=== PATIENT | male | born 1950 | race Caucasian/White ===

== ENCOUNTER 2019-07-17 09:33 | Outpatient (CLI) | payer BC ==
--- NOTE | 2019-07-17 11:27 | CT ---
CT OF BRAIN PERFORMED WITHOUT CONTRAST ENHANCEMENT: Date: 07/17/2019 HISTORY: Patient is having follow-up of a subdural hematoma from surgery in April. The patient has an unste siria gait. FINDINGS: Postoperative changes with left-sided frontal bur holes are noted. There is no subdural collection on the left side. Over the right frontal convexity is a more lenticular shape acute blood collection measuring 2.0 cm. Over the right posterior frontoparietal convexity region is a second also somewhat lenticular shaped collection which is almost isodense to the surrounding breast tissue, but is felt to represent a seco nd large extra-axial somewhat lenticular shaped collections which are more suggestive of a hematoma w ith acute, subacute, and older elements. It measures as much as 3.0 cm in thickness. There is approxi mately 5-6 mm of midline shift to the left. There is effacement of the sulci on the right. IMPRESSION: Two large extra-axial somewhat lenticular shaped collections. One is more of an acute epidural/subdur al hematoma over the right frontal convexity and the second is more over the vertex of the skull in t he right posterior frontoparietal region. There is 5-6 mm of midline shift associated with this and g eneralized effacement of the sulci. These findings were telephoned to Dr. Morales and the patient is being taken to Dr. Morales's offic e for further assessment. POS: [facility]
== END 2019-07-17 09:34 | disposition home or self-care (01) ==
LOC: TBSIIMAG 09:33
PROVIDERS: ATTEND Neurological Surgery
DX: I62.00 Nontraumatic subdural hemorrhage, unspecified (principal)
CPT/HCPCS: 70450

== ENCOUNTER 2019-07-17 15:06 | Inpatient (IN) | payer BC, MEDICARE ==
[2019-07-17 19:48] VITALS: BMI 21.9
[2019-07-17] MEDS ORDERED: HYDROcodone/Acetaminophen 7.5/325 mg Tablet PO PRN ×2 (20:36)
[2019-07-17] MEDS ORDERED: Labetalol HCl 100 MG/20 ML VIAL SLOW IVP PRN (20:37)
[2019-07-17] MEDS ORDERED: Morphine 2 MG/ML SYRINGE SLOW IVP PRN (20:38)
[2019-07-17] MEDS ORDERED: Morphine 4 MG/ML VIAL SLOW IVP PRN (20:38)
[2019-07-17] MEDS ORDERED: Acetaminophen 650 MG Suppository PR PRN (20:40)
[2019-07-17] MEDS ORDERED: Mag-Al 1200 mg/1200 mg/30 ML UDCUP PO PRN (20:41)
[2019-07-17] MEDS ORDERED: diphenhydrAMINE 50 MG/ML VIAL IVP PRN (20:41)
[2019-07-17] MEDS ORDERED: diphenhydrAMINE 50 MG CAP PO PRN (20:41)
[2019-07-17] MEDS: Famotidine/PF 20 mg/2ml Vial SLOW IVP SCH (20:47)
[2019-07-17] MEDS: Sodium Chloride 0.9% 1,000 ML IV SCH (20:47)
[2019-07-17 20:53] LABS: #Basophils 0.1 thou/uL (0.0-0.2); #Eosinphils 0.1 thou/uL (0.0-0.7); #Lymphocytes 1.4 thou/uL (1.20-3.40); #Monocytes 0.5 thou/uL (0.11-0.59); #Neutrophils 3.3 thou/uL (1.40-6.50); %Basophils 1.4 % (0.0-1.0); %Eosinophils 2.3 % (0.0-10.0); %Lymphocytes 26.1 % (21.0-51.0); %Monocytes 9.5 % (0.0-10.0); %Neutrophils 60.7 % (42.0-75.0); Hemoglobin 13.7 g/dL (14.0-18.0); Mean Corpuscular HGB CONC 34.1 g/dL (32.0-36.0); Mean Corpuscular Volume 96.7 fL (78.0-98.0); Mean Platelet Volume 7.6 fL (7.4-10.4); Platelet Count 196 thou/uL (130-400); RBC Distribution Width 11.4 % (11.5-14.5); Red Blood Cell (RBC) Count 4.14 mill/uL (4.70-6.10); White Blood Cell (WBC) Count 5.5 thou/uL (4.8-10.8)
[2019-07-17 21:00] LABS: INR-International Normal Ratio 1.1; PTT 28.7 SEC (22.9-36.1); Prothrombin Time 14.3 SEC (12.0-14.7)
[2019-07-17 21:13] LABS: Anion Gap 13 mmol/L (10-20); BUN (Urea Nitrogen) 16 mg/dL (8.4-25.7); Calc. Creatinine Clearance 56 mL/min (70-130); Calcium 8.8 mg/dL (7.8-10.44); Carbon Dioxide 28 mmol/L (23-31); Chloride 102 mmol/L (98-107); Estimated GFR-MDRD 64; Glucose 192 mg/dL (80-115); Potassium 3.8 mmol/L (3.5-5.1); Sodium 139 mmol/L (136-145)
--- NOTE | 2019-07-18 00:14 | HP ---
HISTORY OF PRESENT ILLNESS: The patient is a 68-year-old male with a past medical history of hypertension, who is known to us for evaluation on 2018 for acute onset of gait instability with CT head at that time notable for a large left-sided vstak-[id number]-lcgqbfb subdural hematoma. He underwent left-sided bur holes with evacuation of the subdural hematoma on 04/29/2019. Following the surgery, he had significant improvement in all of his prior symptoms and was eventually transitioned from the ICU to the floor and eventually to home. He was seen by me in followup on 05/16/2019 with significant improvement and resolution of all his prior symptoms. The patient reports that he was doing well until approximately 1 week ago when he began feeling again slightly unsteady on his feet and leaning more to the left. He was seen in the office today following a repeat noncontrast CT head, which was notable for a progressive and large right-sided xwcal-gs-kzzvatp subdural hematoma. There is mass effect and midline shift. He denies taking any anticoagulants or any recent fall. PAST MEDICAL HISTORY: Hypertension. PAST SURGICAL HISTORY: Left-sided bur holes for evacuation of subdural hematoma on 04/29/2019. MEDICATIONS: He does not take any other medications at home. ALLERGIC: He is allergic to Bactrim and penicillin. SOCIAL HISTORY: He does not smoke, drink, or use any drugs. REVIEW OF SYSTEMS: Per HPI. PHYSICAL EXAMINATION: GCS 15 awake, alert nad, VSS NCAT OP clear with normal voice PERRLA, EOMI Cardiac RR Lungs- no evidence of dypnea FAROM all extremities, no focal weakness Mild gait unsteadiness appreciated. ASSESSMENT AND PLAN: We will go ahead and admit to the Med/Surg floor for close monitoring with plans for right-sided bur holes for subdural evacuation on morning. I will go ahead and repeat his labs and also check coags as well. We will get an MRI of the brain with and without contrast for further evaluation in the morning. I have discussed this plan with Dr. Morales who is in agreement. The patient will be made n.p.o. at midnight on 07/18/2019. Job ID: [id number] MTDD
--- NOTE | 2019-07-18 05:55 | PRG ---
DATE OF SERVICE: 07/18/2019 SUBJECTIVE: Mr. Yang is a gentleman, seen in our office yesterday for return of unsteady gait and found to have a large right-sided acute on chronic subdural hematoma with mass effect and midline shift. He was evacuated for left-sided subdural hematoma in April of 2019. Overnight, he has had no events and has remained comfortable. OBJECTIVE: GENERAL: On exam this morning, he is awake, alert, in no acute distress. EXTREMITIES: He has free active range of motion of all extremities. No focal motor weakness. Pupils are equal and reactive to light. PLAN: We will continue to monitor him closely with q.4 neuro checks. We will get an MRI of the brain with and without contrast for additional evaluation. Plans for surgery in the morning with right-sided jerilyn holes for evacuation of subdural hematoma. The patient should be n.p.o. at midnight. Job ID: [id number]
--- NOTE | 2019-07-18 08:49 | MRI ---
MRI of thebrain with and without contrast: 07/18/2019 COMPARISON:Head CT performed 07/17/2019 HISTORY:Subdural hematoma TECHNIQUE: Multiplanar multisequence MR imaging of thebrain with and without contrast Findings:The diffusion weighted imaging demonstrates no evidence for acute infarction. There is a lar ge lobulated complex extra-axial on the right measuring 14 cm in AP dimension, up to 5.6 cm in craniocaudal dimension, with posterior component measuring 3.6 cm in transverse dimension and anterio r component measuring 2.5 cm in transverse dimension. This exerts mass effect on the adjacent frontal lobe and parietal lobe with associated flattening. There is associated mass effect on the right lateral ventricle which is partially compressed. There i s associated right to left midline shift measuring 9-10 mm. There is adjacent dural thickening and enhancement throughout the majority of the right hemisphere. There is mild polypoid mucosal thickening involving the alveolar recess of the left maxillary sinus. Arterial flow voids at the axial level of the skull base appear grossly unremarkable on the T2-weighted imaging. The whole brain postcontrast imaging demonstrates no abnormal enhancement within the brain parenchyma. Of note, the components of the large extra-axial hematoma on the right are markedly complex with marylou ed internal heterogeneity and blood products of varying ages anteriorly and posteriorly. IMPRESSION: Complex lobulated large extra-axial hematoma (primarily subdural in location) on the righ t with anterior and posterior lobulated complex internal components causing significant associated mass effect with partial effacement of right lateral ventricle and right to left midline shift of jenni roximately 9-10 mm.
[2019-07-18] MEDS: Famotidine/PF 20 mg/2ml Vial SLOW IVP SCH ×2 (09:37→20:30)
[2019-07-18] MEDS: Sodium Chloride 0.9% 1,000 ML IV SCH (12:37)
[2019-07-18] MEDS: hydrALAZINE 20 MG/ML VIAL SLOW IVP PRN (12:53)
[2019-07-18] MEDS ORDERED: Magnevist 469MG/ML 20 ML VIAL ONE (12:59)
[2019-07-19] MEDS: Sodium Chloride 0.9% 1,000 ML IV SCH ×3 (00:55→21:56)
[2019-07-19] MEDS: hydrALAZINE 20 MG/ML VIAL SLOW IVP PRN ×3 (04:17→14:08)
[2019-07-19] MEDS: Acetaminophen 325 MG TAB PO PRN (04:24)
[2019-07-19] MEDS ORDERED: Clindamycin/D5W 900 mg/50 ml Premix Bag ONE (06:32)
[2019-07-19] MEDS ORDERED: Levofloxacin 500 mg/D5W 100 ml Premix Bag ONE (06:32)
[2019-07-19] MEDS ORDERED: Lidocaine 0.5%/Epinephrine 1:200,000 50 ml Vial ONE (06:35)
[2019-07-19] MEDS ORDERED: Fentanyl 100 MCG/2 ML VIAL ONE ×2 (06:36→09:01)
[2019-07-19] MEDS ORDERED: Clindamycin/D5W 900 MG in Premix Bag 1 BAG IVPB SCH (07:30)
[2019-07-19] MEDS ORDERED: niCARdipine 25 MG in Sodium Chloride 0.9% 250 ML 240 ML IVPB SCH (08:45)
[2019-07-19] MEDS ORDERED: Ondansetron HCl/PF 4 MG/2 ML Vial IVP PRN (08:47)
[2019-07-19] MEDS ORDERED: Labetalol HCl 100 MG/20 ML VIAL ONE (08:51)
[2019-07-19] MEDS ORDERED: Labetalol HCl 100 MG/20 ML VIAL SLOW IVP SCH (09:00)
--- NOTE | 2019-07-19 09:13 | OP ---
DATE OF PROCEDURE: 07/19/2019 PLATE FORMER: Kelly Perez PA-C PROCEDURE PERFORMED: Right jerilyn holes evacuation subdural hematoma. DESCRIPTION OF PROCEDURE: The patient was brought to the operating room and intubated. He was positioned supine and the right cranial region was prepped and draped for the purpose of jerilyn holes. Two bur holes were placed in the lateral canthal line frontal and parietally. The dura was coagulated and divided and we immediately encountered lou subdural hematoma. This seemed largely liquid and I did not identify significant solid clot. The subdural hematoma was completely evacuated. The brain did not seem to expand significantly. The subdural space was evacuated until clear. A drain was left in place and the wounds were then closed in anatomic layers. Job ID: [id number]
[2019-07-19] MEDS ORDERED: Rocuronium Bromide 10 MG/ML (10ML VIAL) ONE (10:31)
[2019-07-19] MEDS ORDERED: Ondansetron PF 4 MG/2 ML Vial ONE (10:31)
[2019-07-19] MEDS ORDERED: Lidocaine 1% PF 5 ML VIAL ONE ×2 (10:31)
[2019-07-19] MEDS ORDERED: Dexamethasone 20 MG/5 ML VIAL ONE (10:31)
[2019-07-19] MEDS ORDERED: Glycopyrrolate 0.2 MG/ML 5 ML SYRINGE ONE (10:31)
[2019-07-19] MEDS ORDERED: PHENYLEPHRINE-NS 100 MCG/ML 10 ML SYRINGE ONE (10:31)
[2019-07-19] MEDS ORDERED: PROPOFOL 200 MG/20 ML VIAL ONE (10:31)
[2019-07-19] MEDS: Famotidine/PF 20 mg/2ml Vial SLOW IVP SCH (10:37)
--- NOTE | 2019-07-19 10:37 | EKG ---
Test Reason : Blood Pressure : / mmHG Vent. Rate : 068 BPM Atrial Rate : 068 BPM P-R Int : 202 ms QRS Dur : 146 ms QT Int : 430 ms P-R-T Axes : 053 -52 035 degrees QTc Int : 457 ms Normal sinus rhythm Possible Left atrial enlargement Right bundle branch block Left anterior fascicular block Bifascicular block Septal infarct , age undetermined cannot be excluded Abnormal ECG Confirmed by RADHA LEONARD ([id number]) on 07/19/2019 10:37:19 AM Referred By: Confirmed By:RADHA LEONARD
[2019-07-19] MEDS: Clindamycin/D5W 900 MG in Premix Bag 1 BAG IVPB SCH ×2 (13:49→21:49)
--- NOTE | 2019-07-19 14:03 | PQF ---
DATE: 07-19-19 ATTN: SHANTA KIRAN Please exercise your independent, professional judgment in responding to the clarification form. Clinical indicators are provided on the bottom of this form for your review Please check appropriate box(s): [ ] Cerebral edema / Vasogenic edema [ ] Compression of brain [x ] Other diagnosis ____subdural hematoma [ ] Unable to determine In addition, please specify: Present on Admission (POA): [ ] Yes [ ] No [ ] Unable to determine For continuity of documentation, please document condition throughout progress notes and discharge summary. Thank You. CLINICAL INDICATORS - SIGNS / SYMPTOMS / LABS / RESULTS AND LOCATION IN EMR: H&P 07-17-19: HE WAS SEEN IN THE OFFICE TODAY FOLLOWING A REPEAT NONCONTRAST CT HEAD, WHICH WAS NOTABLE FOR A PROGRESSIVE AND LARGE R SIDED ACUTE ON CHRONIC SUBDURAL HEMATOMA. THERE IS MASS EFFECT AND MIDLINE SHIFT. MRI 07-18-19: ASSOCIATED MASS EFFECT WITH PARTIAL EFFACEMENT OF RIGHT LATERAL VENTRICLE AND RIGHT TO LEFT MIDLINE SHIFT OF APPROX. 9-10 MM. RISK FACTORS / RESULTS AND LOCATION IN EMR: H&P 07-18-19: MEDICAL HX OF HTN, WHO IS KNOWN TO US FOR EVAL. ON 04-28 FOR ACUTE ONSET OF GAIT INSTABILITY WITH CT HEAD AT THAT TIME NOTABLE FOR A LARGE L SIDED ACUTE ON CHRONIC SUBDURAL HEMATOMA. HE UNDERWENT L SIDED BUR HOLES WITH EVACUATION OF THE SUBDURAL HEMATOMA ON 04-29-19. BEGAN FEELING AGAIN SLIGHTLY UNSTEADY ON HIS FEET AND LEANING MORE TO THE LEFT. TREATMENTS / RESULTS AND LOCATION IN EMR: BRAIN MRI 07-18-19 PROCEDURE: 07-19-19: [employer] (This form is maintained as a part of the permanent medical record) 2014 [employer]. All Rights Reserved [facility]
[2019-07-19] MEDS: Ondansetron PF 4 MG/2 ML Vial SLOW IVP PRN (14:26)
[2019-07-19] MEDS ORDERED: chlorproMAZINE HCl 25 MG TAB PO PRN (19:56)
[2019-07-19] MEDS ORDERED: Diazepam 5 MG TAB PO PRN (20:20)
[2019-07-19] MEDS ORDERED: Diazepam 5 MG TAB PO SCH (20:30)
[2019-07-19] MEDS: Atenolol 25 MG TAB PO SCH (20:37)
[2019-07-19] MEDS: Tamsulosin HCl 0.4 MG CAP PO SCH ×2 (20:37→21:02)
--- NOTE | 2019-07-19 21:09 | CON ---
DATE OF CONSULTATION: 07/19/19 Provider requesting the consult -- Kelly Perez PA-C. REASON FOR CONSULTATION: Evaluation for possible alcohol withdrawal and management of medical conditions. HISTORY OF PRESENT ILLNESS: The patient is a 68-year-old male with a past medical history of hypertension and benign prostatic hyperplasia, who was admitted electively after the patient was seen in the office by Kelly and found to have an unsteady gait. The patient underwent a CT scan of the head, which revealed a subdural hematoma. The patient was admitted for surgical intervention. Apparently, the patient had gait instability in March 2019, at which time, CT scan of the head revealed a large left-sided acute on chronic subdural hematoma. He underwent left-sided jerilyn holes with evacuation of the subdural hematoma on April 29, 2019. He had significant improvement in his symptoms. Eventually, the patient was seen in followup by Dr. Andriy Morales for unsteady gait. Noncontrast CT scan of the head was obtained which revealed a large right-sided acute on chronic subdural hematoma. He was admitted to the hospital. The patient underwent MRI of the brain, which revealed the large right-sided subdural hematoma. Hence, the patient underwent operative intervention on 07/19/2019 with jerilyn holes and evacuation of the subdural hematoma. The patient is currently admitted to the CCU. Internal Medicine consult was requested as the patient has a history of alcohol use and there is concern for possible alcohol withdrawals. Internal Medicine evaluation has also been requested for management of his chronic medical conditions. Currently, the patient stated that he has some discomfort in his head and rates the pain as 1/10 in intensity without any radiation. He denies any changes in his vision. He reports nausea and dry heaves. He denies any abdominal pain, diarrhea, or constipation. He does report some abdominal discomfort in the lower abdomen and relates it to trouble urinating. He stated that he has urinary urgency, but he is not able to make any urine. He stated that he has a history of BPH and is usually on Flomax. He also states that he feels as if the bladder is full. The patient also complains of hiccups that happen once every 3 to 4 months and last from 2 to 5 days. He has never been evaluated for the same. However, he stated that the hiccups usually get better after he takes some Tums. The patient denies any chest pain, shortness of breath, palpitations, cough, or wheezing. He denies any fever or chills. He denies any swelling in his legs, rash, or bruising. PAST MEDICAL HISTORY: Essential hypertension. Benign prostatic hyperplasia. PAST SURGICAL HISTORY: Left-sided jerilyn holes and evacuation of subdural hematoma in April 2019. Hernia repair surgery. Broken leg surgery. FAMILY HISTORY: Reviewed. Not pertinent. SOCIAL HISTORY: Patient lives with his . He does not use any assistive devices for ambulation. He denies smoking or using any illicit drugs. Patient reports consuming two glasses of wine every night at bedtime over the past 20 years. His last drink was on Tuesday. He denies any history of alcohol withdrawal seizures in the past or delirium tremens in the past. He stated that he can go up to a month without consuming alcohol and states that he did this after his surgery in April 2019. Currently, he denies any withdrawal symptoms. He does report mild anxiety from not getting his alcohol as alcohol helps him calm down. He denies any insomnia. ALLERGIES: PENICILLINS AND SULFA. CURRENT HOME MEDICATIONS: Reviewed and reconciled. PHYSICAL EXAMINATION: VITAL SIGNS: Temperature is 98.2 degrees Fahrenheit, heart rate 167 per minute, blood pressure 140/89 mmHg, respiratory rate 11 per minute, and oxygen saturation 96% on room air. CONSTITUTIONAL: Patient is lying in the bed. Appears to be in no acute distress. HEAD: Drain in place on the right side of the head, draining bloody fluid. Minimal tenderness to palpation. EYES: Pupils equal, round, and react to light and accommodation. No scleral icterus or conjunctival pallor present. ENT: Dry mucous membranes. No oropharyngeal erythema appreciated. CARDIOVASCULAR: First and second heart sounds present. Regular rate and rhythm. No murmurs, rubs, or gallops present. No pedal edema appreciated. PULMONARY: Clear to auscultation bilaterally. Not using accessory muscle respirations. No chest wall tenderness to palpation present. GASTROINTESTINAL: Soft. Minimal tenderness to palpation in the hypogastric region without any rebound tenderness, guarding, or rigidity. Bowel sounds present. No organomegaly appreciated. MUSCULOSKELETAL: Power is 5/5 all over. No acute joint deformities appreciated. CENTRAL NERVOUS SYSTEM: Cranial nerves 2 through 12 grossly intact. No sensory deficits appreciated. PSYCHIATRIC: Patient is awake, alert, and oriented to time, place, and person. DERMATOLOGIC: No decubitus ulcers appreciated. SKIN: Warm and dry to touch. LYMPHATIC: No cervical lymphadenopathy appreciated. No inguinal lymphadenopathy appreciated. LABORATORY DATA: Reviewed. Hemoglobin of 13.7 on 07/17/2019. Glucose was 192 on 07/17/2019 and has been within the normal range since then. IMPRESSION: 1. Right acute on chronic subdural hematoma, status post evacuation with jerilyn holes. 2. Alcohol use-not in withdrawal. 3. Hiccups. 4. Benign prostatic hyperplasia-symptomatic. Concern for urinary retention. 5. Essential hypertension. RECOMMENDATIONS: 1. Management of his subdural hematoma per the primary team. 2. Patient will be placed on Thorazine p.o. p.r.n. hiccups. IV protonix for stress ulcer prophylaxis. 3. For his BPH, patient will be resumed on Flomax. Will also obtain a bladder scan and if the patient has urinary retention, the patient will undergo in and out straight catheterization. If the patient has urinary retention, he will continue to undergo bladder scanning every 6 to 8 hours for monitoring. 4. For his essential hypertension, patient is on p.r.n. medications. Management as per primary team. His blood pressure is adequately controlled. 5. GI prophylaxis-IV protonix. CODE STATUS - FULL CODE Thank you very much for involving the Internal Medicine team in the care of your patient. We will continue to monitor the patient and assist in the management. Job ID: [id number] MTDD
[2019-07-19] MEDS ORDERED: Pantoprazole 40 MG VIAL IVP SCH (21:30)
[2019-07-20 03:59] LABS: #Eosinphils 0.1 thou/uL (0.0-0.7); #Lymphocytes 1.1 thou/uL (1.20-3.40); #Monocytes 1.3 thou/uL (0.11-0.59); #Neutrophils 7.8 thou/uL (1.40-6.50); %Basophils 0.4 % (0.0-1.0); %Eosinophils 0.5 % (0.0-10.0); %Lymphocytes 10.8 % (21.0-51.0); %Monocytes 12.7 % (0.0-10.0); %Neutrophils 75.6 % (42.0-75.0); Hemoglobin 13.4 g/dL (14.0-18.0); Mean Corpuscular HGB CONC 34.8 g/dL (32.0-36.0); Mean Corpuscular Hemoglobin 33.7 pg (27.0-31.0); Mean Corpuscular Volume 97.1 fL (78.0-98.0); Mean Platelet Volume 7.6 fL (7.4-10.4); Platelet Count 198 thou/uL (130-400); RBC Distribution Width 11.5 % (11.5-14.5); Red Blood Cell (RBC) Count 3.98 mill/uL (4.70-6.10); White Blood Cell (WBC) Count 10.3 thou/uL (4.8-10.8)
[2019-07-20] MEDS ORDERED: Diazepam 5 MG TAB PO PRN (04:00)
[2019-07-20 04:25] LABS: ALT (SGPT) 9 U/L (8-55); AST (SGOT) 15 U/L (5-34); Albumin 3.7 g/dL (3.4-4.8); Alkaline Phosphatase 71 U/L (40-110); Anion Gap 9 mmol/L (10-20); BUN (Urea Nitrogen) 15 mg/dL (8.4-25.7); Calc. Creatinine Clearance 63 mL/min (70-130); Calcium 8.7 mg/dL (7.8-10.44); Carbon Dioxide 25 mmol/L (23-31); Chloride 105 mmol/L (98-107); Estimated GFR-MDRD 73; Globulin 2.2 g/dL (2.4-3.5); Glucose 103 mg/dL (80-115); Phosphorus 3.3 mg/dL (2.3-4.7); Potassium 4.1 mmol/L (3.5-5.1); Protein, Total 5.9 g/dL (5.8-8.1); Sodium 135 mmol/L (136-145)
[2019-07-20] MEDS: Clindamycin/D5W 900 MG in Premix Bag 1 BAG IVPB SCH ×3 (05:22→21:02)
[2019-07-20] MEDS ORDERED: Tamsulosin HCl 0.4 MG CAP PO SCH (07:30)
--- NOTE | 2019-07-20 07:37 | CT ---
PRELIMINARY REPORT/[facility]/EMERGENCY AFTER HOURS PROCEDURE PROCEDURE: CT Head without Contrast . HISTORY: Status post intracranial hemorrhage drainage. TECHNIQUE: Axial images were performed without the administration of IV contrast with or without mult iplanar reformations . COMPARISON: 07/17/2019. FINDINGS: Interval jerilyn hole placement on the RIGHT with drainage of the patient's subdural hemorrhage with maribeth ins remaining present in the collection. There remains moderate amount of hemorrhage posterior aspect of the RIGHT convexity measuring up to 1.9 cm in diameter with moderate mass effect on the adj acent cerebrum. Near-complete drainage of the collection anteriorly over the convexity on the RIGHT. Small amount of pneumocephalus in the subdural region related to drainage. Improved midline shift with no significant shift on current study. Normal size ventricles. No other acute change identified. IMPRESSION: Interval jerilyn hole placement and drainage of the patient's subdural collection on the RIGHT with mode rate amount of hemorrhage remaining present posteriorly near the drain. Significant decompression of the hemorrhage anteriorly over the convexity adjacent to the frontal lobe. No significant midline shift today. ELECTRONICALLY SIGNED BY: Gian Byrne MD Jul 20, 2019 5:19:34 AM PRODUCTION MATERIAL HAND[employer]ER This report is intended for review by the ordering physician only, in accordance of law. If you recei ve this report in error, please call [facility] at [phone]. FINAL REPORT Exam: Head CT without contrast HISTORY: Status post evacuation of right subdural hematoma COMPARISON: 07/17/2019 FINDINGS: Hemorrhage: Interval placement of an extra-axial drainage catheter. There is associated pneumocephalu s. The overall degree of extra-axial hematoma along the right frontal and parietal convexities has decreased. Brain parenchyma: There is some mass effect upon the right frontal and temporal lobe secondary to ext ra-axial hematoma. The degree of mass effect has markedly improved. Ventricular system: Ventricles and sulci are patent and symmetric. Calvarium: Postoperative changes in the right calvarium. Sinuses and mastoid air cells: Adequate aeration. IMPRESSION: This report is in agreement with initial report by [facility]. Interval decrease in size of sub dural collections along the right frontal and parietal convexities secondary to evacuation. There is improved mass effect. Continued surveillance is recommended. Transcribed Date/Time: 07/20/2019 7:45 AM
[2019-07-20] MEDS: Multivitamin W/ Minerals 1 TAB PO SCH (08:33)
[2019-07-20] MEDS: Folic Acid 1 MG TAB PO SCH (08:33)
[2019-07-20] MEDS: Thiamine 100 MG TAB PO SCH (08:33)
--- NOTE | 2019-07-20 08:44 | PRG ---
DATE OF SERVICE: 07/20/2019 SUBJECTIVE: The patient is a 68-year-old male, postoperative day #1, status post right-sided jerilyn holes for evacuation of subdural hematoma. The patient has remained neurologically intact overnight. He has no complaints at the bedside this morning. His VALERIE drain remains in place and had approximately 10 mL out overnight. His repeat CT head this morning shows significant reduction in the anterior portion of the subdural hematoma. However, there still is a moderate subdural collection in the posterior aspect. Some urinary retention overnight with straight cath X2, on flomax. OBJECTIVE: On exam this morning, the patient is awake, alert, in no acute distress. His pupils are equal and reactive. Extraocular movements are intact. He has free active range of motion of all extremities. No focal motor weakness. No focal neurologic deficits are appreciated. His incision is clean, dry, and intact. PLAN: We will leave VALERIE drain in place. The patient should remain on IV antibiotics until the VALERIE drain is removed. The patient is to be evaluated further with MRIs , with a CT, and L-spine with and without contrast today. He has also had some urinary retention and this required p.r.n. straight cath. He may require Sanders catheter placement if this does not improve. The hospitalist is also assisting with management of his medical needs such as urinary retention, hypertension. There was initial concern by the medicine team that pt could experience ETOH withdrawal from his two glasses of wine a night, however his alcohol use during our discussions has been minimal and I do not feel he is at risk for ETOH withdrawal. We appreciate their ongoing assistance with his medical issues. Job ID: [id number] MTDD
[2019-07-20] MEDS: Ondansetron PF 4 MG/2 ML Vial SLOW IVP PRN (08:52)
[2019-07-20] MEDS: Acetaminophen 325 MG TAB PO PRN (12:31)
--- NOTE | 2019-07-20 13:36 | MRI ---
Exam: MRI thoracic spine with and without contrast HISTORY: Recurrent, spontaneous subdural hematomas. Eval for intracranial hypotension. COMPARISON: None FINDINGS: Appropriate T1 marrow signal intensity of the thoracic vertebra. Thoracic spine vertebral body height is maintained. There is no fracture. No significant STIR hyperintensity to suggest vertebral body edema or ligamentous injury. Visualized mediastinum, lung parenchyma and solid organs are grossly unremarkable. There appear to be dependent atelectatic changes involving the lung bases. Trace left-sided pleural effusion Postcontrast images do not demonstrate abnormal enhancement of the vertebral bodies. There is no abno rmal enhancement within the thecal sac including the cauda equina and conus medullaris. The thoracic cord has a normal size and signal intensity. No cord expansion. No cord malacia. No abno rmal enhancement. There does not appear to be any ventral dural defect. There does not appear to be any evidence of cor d herniation. The thoracic cord is confined to the thecal sac. 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 Throughout the thoracic spine, there is no significant posterior disc abnormality. No significant yuriy tral canal stenosis. Patent bilateral neural foraminal IMPRESSION: Essentially unremarkable MRI of the thoracic spine. No evidence of significant central ca nal stenosis. No evidence of a ventral cord hernia.
--- NOTE | 2019-07-20 13:38 | MRI ---
MRI of thecervical spine with and without contrast: 07/20/2019 COMPARISON:None available HISTORY:Recurrent intracranial hemorrhage TECHNIQUE: Multiplanar multisequence MR imaging of thecervical spine with and without contrast Findings:There is mucosal thickening within the alveolar recess of the left maxillary sinus, incomple tely imaged. The sagittal STIR imaging demonstrates no focal area of osseous marrow edema. Cervical vertebral body height and alignment is unremarkable aside from minimal anterolisthesis at C6 -7, measuring approximately 3 mm. C2-3: Intervertebral disc height and signal intensity appears within normal limits with no significan t central canal or neural foraminal stenosis. C3-4: No significant central canal or neural foraminal stenosis. Mild disc desiccation. C4-5: There is a mild degree of neural foraminal stenosis on the right secondary to facet and uncover tebral osteophyte formation. No significant central canal or left neural foraminal stenosis. C5-6: There is disc space narrowing with disc desiccation and central/right paracentral disc protrusi on and associated posterior osteophyte. This abuts the ventral aspect of the cord to the right of midline with a mild degree of central canal stenosis centrally and on the right. Bilateral facet and uncovertebral osteophyte formation present with mild left and moderate right neural foraminal stenosis. C6-7: Disc desiccation and minimal disc bulge with no significant central canal or neural foraminal s tenosis. C7-T1: No significant central canal or neural foraminal stenosis. The postcontrast imaging demonstrates no abnormal enhancement within the cervical spine. The sagittal fat saturated T1 postcontrast imaging is limited secondary to artifact from the level of the skull base through the level of the C6-7 interspace. IMPRESSION:Cervical spine degenerative change as detailed above.
--- NOTE | 2019-07-20 13:47 | MRI ---
Exam: MRI lumbar spine with and without contrast HISTORY: Recurrent subdural hematomas. Etiology is uncertain. Evaluate for possible leak causing intr acranial hypotension. FINDINGS: Appropriate T1 marrow signal intensity of the lumbar vertebra. Lumbar spine vertebral body height is maintained. No fracture. Intrinsic T1 and T2 hyperintense lesion at L2, compatible with hemangioma. No significant STIR hyperintensity to suggest vertebral body edema or ligamentous injury. Postcontrast images do not demonstrate any abnormal enhancement within the thecal sac including the c auda equina and conus medullaris. Appropriate signal intensity of the visualized paraspinal muscles. Multiple T2 hyperintensities in th e left and right renal cortex, compatible with cortical cysts. Conus medullaris terminates at the mid to lower aspect of T12. T12-L1: Adequate disc hydration. There is a T2 and STIR hyperintense focus with enhancement involving the posterior midline of the annulus compatible with a small annular fissure. No significant associated disc herniation. No significant central canal stenosis. Right and left neural foramina are patent. Left sided Tarlov cyst is noted. L1-L2: Adequate disc hydration. There is a T2 and STIR hyperintense focus with enhancement involving the posterior midline annulus, compatible with a small annular fissure. No significant associated disc herniation. No significant central canal stenosis. Bilaterally, the neural foramina are patent. L2-L3: Adequate disc hydration. No significant central canal stenosis or significant neural foraminal narrowing L3-L4: Broad-based disc bulge, ligamentum flavum thickening and facet hypertrophy result in mild cent ral canal stenosis. There are T2 and STIR hyperintensities along the left and right foraminal component of the disc. There is associated enhancement. Annular fissures are present. Both annular fi ssures abut the foraminal bilateral L3 nerve roots. Mild bilateral neural foraminal narrowing. L4-L5: Adequate disc hydration. Broad-based disc bulge, ligamentum flavum thickening and facet hypert rophy result in mild central canal stenosis. Mild fluid in both facet joints. There are T2 and STIR hyperintensities along the annulus at the level of the left and right neural foraminal component of t he disc. Both annular fissures abut bilateral traversing L4 nerve roots. Mild bilateral neural foraminal narrowing. L5-S1: Adequate disc hydration. No significant central canal stenosis or significant neural foraminal narrowing. Small amount of fluid in both facet joints. IMPRESSION: 1. No evidence of significant central canal stenosis or significant neural foraminal narrowing throug hout the lumbar spine. 2. Multilevel annular fissures as described above. Transcribed Date/Time: 07/20/2019 2:06 PM
[2019-07-20] MEDS ORDERED: Magnevist 469MG/ML 20 ML VIAL ONE ×3 (14:50)
[2019-07-20] MEDS ORDERED: Calcium Carbonate 500 MG ChewTAB PO PRN (19:25)
--- NOTE | 2019-07-20 19:26 | PDOC.HOSPP ---
- Subjective Encounter Date: 07/20/19 Encounter Time: 19:25 Subjective: THe patient has no headache, nausea, vomiting. Just complains of hiccups which are relieved by tums. Protonix hasn't kicked in yet - Objective Vital Signs & Weight: Vital Signs (12 hours) Temp 07/20/19 16:00 98.4 F Weight Weight 144 lb 1 oz Most Recent Monitor Data Heart Rate from ECG 59 NIBP 148/86 NIBP BP-Mean 106 Respiration from ECG 20 SpO2 94 I&O: 07/19/19 07/20/19 07/21/19 06:59 06:59 06:59 Intake Total 1380 1662 1190 Output Total 1600 460 Balance 1380 62 730 Result Diagrams: 07/20/19 03:23 07/20/19 03:23 Hospitalist ROS - Review of Systems Constitutional: denies: fever, chills ENT: denies: ear pain Cardiovascular: denies: chest pain, palpitations, orthopnea, light headedness Gastrointestinal: denies: nausea, vomiting, abdominal pain Genitourinary: denies: dysuria, frequency - Medication Medications: Active Medications Generic Name Dose Route Start Last Admin Trade Name Freq PRN Reason Stop Dose Admin Acetaminophen 650 mg 07/17/19 20:40 07/20/19 12:31 Tylenol PO 650 mg Q4H PRN Administration Headache/Fever or Pain-MILD Atenolol 25 mg 07/19/19 21:00 07/19/19 20:37 Tenormin PO 25 mg HS REAL Administration Folic Acid 1 mg 07/20/19 09:00 07/20/19 08:33 Folvite PO 1 mg DAILY REAL Administration Hydralazine HCl 5 mg 07/17/19 20:42 07/19/19 14:08 Apresoline SLOW IVP 5 mg Q15M PRN Administration SBP GREATER THAN 160 Clindamycin Phosphate/Dextrose 50 mls @ 100 mls/hr 07/19/19 14:00 07/20/19 13 :40 900 mg/ Device IVPB 50 mls Q8HR REAL Administration Iron/Minerals/Multivitamins 1 tab 07/20/19 09:00 07/20/19 08:33 Theragran M PO 1 tab DAILY REAL Administration Morphine Sulfate 4 mg 07/17/19 20:38 02/20/20 10:10 Morphine SLOW IVP 4 mg Q1H PRN Administration BREAKTHRU Severe Pain (7-10) Ondansetron HCl 4 mg 07/17/19 20:40 07/20/19 08:52 Zofran SLOW IVP 4 mg Q8H PRN Administration Nausea/Vomiting Pantoprazole Sodium 40 mg 07/20/19 09:00 07/20/19 08:33 Protonix PO 40 mg DAILY REAL Administration Sodium Chloride 10 ml 07/19/19 09:00 07/20/19 08:35 Flush - Normal Saline IVF 10 ml Q12HR REAL Administration Tamsulosin HCl 0.4 mg 07/19/19 21:00 07/19/19 21:02 Flomax PO Not Given HS REAL Thiamine HCl 100 mg 07/20/19 09:00 07/20/19 08:33 Thiamine PO 100 mg DAILY REAL Administration - Exam General Appearance: NAD, awake alert General - other findings: Cranial incision on right side Eye: PERRL, anicteric sclera ENT: normocephalic atraumatic Neck: supple, no JVD Heart: RRR, no murmur, no gallops, no rubs Respiratory: CTAB, no wheezes, no rales, no ronchi Gastrointestinal: soft, non-tender, non-distended Extremities: no cyanosis, no clubbing, no edema Skin: normal turgor, no lesions, no rashes Neurological: cranial nerve grossly intact, normal sensation to touch, no focal deficits, no new deficit Musculoskeletal: normal tone, normal strength, no muscle wasting Psychiatric: normal affect, normal behavior, A&O x 3 Hosp A/P - Plan MRI cervical spine: degen changes MRI L spine: multilevel annular fissures MRI thoracic spine: unremarkable THis is 68 year old male who presented with acute on chronic subdural hematoma , medicine consluted for alcohol withdrawal Subdural hematoma - management per primary team - MRI cervical/thoracic/lumbar spine unremarkable Hypomagnesemia - mag 1.4 yesterday, will recheck today. Replace prn Hiccups - possibly GERD - continue IV protonix - thorazine prn - will add tums prn BPH - continue flomax Hypertension - continue prn medications Alcohol use - currently not requiring prn medication Code status: full code
[2019-07-20] MEDS: Atenolol 25 MG TAB PO SCH (20:19)
[2019-07-20] MEDS: Tamsulosin HCl 0.4 MG CAP PO SCH (20:19)
[2019-07-20 20:20] VITALS: BP 148/95
[2019-07-21] MEDS: Clindamycin/D5W 900 MG in Premix Bag 1 BAG IVPB SCH (05:34)
[2019-07-21] MEDS: Multivitamin W/ Minerals 1 TAB PO SCH (08:54)
[2019-07-21] MEDS: Thiamine 100 MG TAB PO SCH (08:55)
[2019-07-21] MEDS: Folic Acid 1 MG TAB PO SCH (08:55)
[2019-07-21 08:59] VITALS: TEMP 97.9
--- NOTE | 2019-07-21 11:44 | PRG ---
DATE OF SERVICE: 07/21/2019 Mr. Yang is doing extremely well. His postoperative CT was satisfactory and his drain has been removed. We will discharge him today. With respect to the etiology of his spontaneous subdural hematomas, MRI of the brain as well as the entire spine has not been contributory. Ultimately, we will try to obtain CT myelography, but we will wait several weeks from the evacuation of the most recent subdural hematoma. I discussed with the patient and his children. Job ID: [id number]
--- NOTE | 2019-07-23 11:59 | DIS ---
DATE OF ADMISSION: 07/17/2019 DATE OF DISCHARGE: 07/21/2019 HOSPITAL COURSE: The patient is a 68-year-old male, recently evaluated in our office for draao-fo-nwzmyol subdural hematoma. The patient was seen in April 2019 and had a left-sided chronic subdural hematoma, which was evacuated by jerilyn hole drainage at the [facility]. Following this original surgery, he did well, was seen in the office in initial checkup. Months later, he was seen in additional followup and had recurrent gait instability and a new CT revealed a large right-sided nzoeg-jb-bwypxyn subdural hematoma with mass effect and midline shift. He was directly admitted from our office for close monitoring and underwent right-sided jerilyn holes for evacuation of this subdural hematoma on 07/19/2019. Following the surgery, he was transitioned to the ICU, where his pain has been well controlled with p.o. medicines, he is tolerating a regular diet. He initially had some urinary retention, but this has improved with the use of Flomax and p.r.n. straight cath. He is now voiding without difficulty. He had a VALERIE drain placed intraoperatively and has had minimal output. His repeat CT shows significant improvement in the anterior portion of the subdural, but there is a moderate amount of blood still present posteriorly. The patient is doing great neurologically and has had significant improvement in all his prior symptoms. His VALERIE drain was removed on postoperative day #2. He was seen and evaluated by Dr. Morales this course as well and he agrees that he is appropriate for discharge to home. I have discussed home care precautions. We will follow up with the patient in 2 weeks for staple removal. Job ID: [id number]
== END 2019-07-21 11:36 | disposition home or self-care (01) | DRG 27 ==
LOC: SURG A 17:07 → CCU 07-19 09:38
PROVIDERS: ADMIT Neurological Surgery; ATTEND Neurological Surgery
PROC: 00C40ZZ Extirpation of Matter from Intracranial Subdural Space, Open Approach (ICD-10-PCS; principal; 2019-07-19)
DX: I62.01 Nontraumatic acute subdural hemorrhage (principal); I10 Essential (primary) hypertension; I62.03 Nontraumatic chronic subdural hemorrhage; R06.6 Hiccough; N40.1 Benign prostatic hyperplasia with lower urinary tract symptoms; R33.8 Other retention of urine; E83.42 Hypomagnesemia; Z88.1 Allergy status to other antibiotic agents; Z88.0 Allergy status to penicillin; Z79.899 Other long term (current) drug therapy
CPT/HCPCS: 36415; 36416; 70450; 70553; 72156; 72157; 72158; 80048; 80053; 83735; 84100; 85025; 85610; 85730; 93005; 93010; A9579; C9113; J0360; J1100; J1956; J2001; J2270; J2405; J2704; J3010; J3490; S0028

== ENCOUNTER 2019-08-07 15:03 | Outpatient (CLI) | payer BC ==
--- NOTE | 2019-08-07 15:42 | CT ---
Exam: Head CT without contrast HISTORY: Follow-up subdural hematoma. COMPARISON: 07/20/2019 FINDINGS: Hemorrhage: Redemonstration of a hypodensity involving the right extra-axial space at the level of th e frontal parietal region, near the vertex. There is mass effect upon the right cerebrum with sulcal effacement. Extra-axial collection is hypodense suggesting a subacute or early chronic collect ion. Largest component measures 2.1 x 5.5 cm. The location is similar to the previous examination. The overall extent of subdural blood has decreased since the previous exam. Subdural blood does still track along the right temporal and frontal convexities. Brain parenchyma: Cortical bai-white matter differentiation is preserved. No mass effect or midline shift. Basilar cisterns are patent. Ventricular system: Ventricles and sulci are patent and symmetric. Calvarium: Stable bilateral calvarial jerilyn hole defects. Sinuses and mastoid air cells: Adequate aeration. IMPRESSION: 1. Late subacute early chronic subdural hematoma along the right frontal parietal and temporal convex ity. There is mass effect upon the right cerebrum, similar to the previous examination. There is no midline shift. 2. Stable postsurgical changes in the calvarium
== END 2019-08-07 15:04 | disposition home or self-care (01) ==
LOC: TBSIIMAG 15:03
PROVIDERS: ATTEND Neurological Surgery
DX: S06.5X9D Traumatic subdural hemorrhage with loss of consciousness of unspecified duration, subsequent encounter (principal); Z98.890 Other specified postprocedural states
CPT/HCPCS: 70450

== ENCOUNTER 2019-08-16 07:10 | Day surgery (SDC) | payer BC ==
[2019-08-15 10:06] VITALS: BMI 21.2
[2019-08-16 08:32] VITALS: BP 144/92; TEMP 97.8
--- NOTE | 2019-08-16 09:56 | CT ---
CT LUMBAR MYELOGRAM: INDICATIONS: 68-year-old male with history of cyst chronic subdural hematomas; evaluate CSF leak COMPARISON: MR the lumbar spine with and without contrast dated July 20, 2019. TECHNIQUE: Multiple CT images were obtained of the lumbar spine following the intrathecal administration of an r adiopaque contrastsolution. Please see the lumbar myelogram for details concerning the injection technique. Axial, coronal, and sagittal reformatted images were constructed from the raw data. FINDINGS: Visualized retroperitoneal and paravertebral soft tissues: There is stable bilateral renal cysts. The re are mild vascular calcifications seen involving the visualized vasculature. No pathologically enlarged lymph nodes are evident. There is no evidence to suggest presence of an active CSF leak. Spinal alignment: There is mild levoscoliosis centered at L3. Spinal instrumentation or postsurgical change: None At L5-S1, there is no appreciable central canal or neuroforaminal narrowing.. There is mild facet hyp ertrophy. At L4-5, there is a mild broad-based disc bulge with facet hypertrophy inducing mild neural foraminal encroachment. At L3-4, there is a mild broad-based bulge with facet hypertrophy inducing mild neural foraminal encr oachment At L2-3, there is no appreciable central canal or neuroforaminal narrowing. At L1-L2, there is no appreciable central canal or neuroforaminal narrowing. At T12-L1, there is no appreciable central canal or neuroforaminal narrowing. IMPRESSION: 1. No evidence of active CSF leak or extra-axial fluid collection. 2. Stable lumbar spondylosis 3. Bilateral renal cysts.
--- NOTE | 2019-08-16 10:16 | CT ---
EXAM: CT Thoracic Spine W Con PROVIDED CLINICAL HISTORY: Patient with recurrent subdural hematomas of uncertain etiology. Evaluate for cerebral spinal fluid l eak. COMPARISON: MRI thoracic spine on 07/20/2019 FINDINGS: Degenerative changes are seen in the visualized lower cervical spine. No intradural or extra dural de fect is seen in the thoracic spine. The central spinal canal and neural foramina are patent at all levels of the thoracic spine. There are no findings to suggest a cerebral spinal fluid leak on this e xamination and contrast appears confined to the central spinal canal. Minimal vascular calcifications are seen in the aortic arch. There is mild dependent atelectasis bilaterally. Incomplete visualization of a 2.5 cm hypodense lesion superior pole left kidney demonstrating an atte nuation coefficient most compatible with a cyst. This also demonstrated MRI findings most suggestive of a cyst. A 1.4 cm hypodense lesion is seen in the superior pole right kidney which demon strated increased T2-weighted signal intensity on prior MRI and is also suggestive of a cyst. IMPRESSION: 1. No findings to suggest a cerebral spinal fluid leak based on this exam. 2. Central spinal canal and neural foramina are patent at all levels of the thoracic spine. 3. Superior pole bilateral renal cysts.
--- NOTE | 2019-08-16 10:22 | CT ---
EXAM: CT Cervical Spine W Con PROVIDED CLINICAL HISTORY: Patient with recurrent bilateral subdural hematomas of uncertain etiology. CT cervical spine post mye logram was performed to evaluate for possible cerebral spinal fluid leak. COMPARISON: MRI cervical spine on 07/20/2019 FINDINGS: Imaging was obtained from the skull base to the upper thoracic spine post myelogram. There are no findings to suggest a cerebral spinal fluid leak on this examination. Degenerative changes are seen in the cervical spine greatest at the C5-6 and C6-7 levels. No fracture is seen involving the cervical spine. There is trace anterolisthesis of C6 on C7. C2-3 level: No disc bulge or disc herniation is visualized, and the central spinal canal and neural f oramina are patent. C3-4 level: Minimal posterior osteophyte formation is present. Central spinal canal and neural forami na are patent. C4-5 level: There is mild disc osteophyte complex. Uncinate process hypertrophy is present greater on the right. Findings result in mild right neural foraminal narrowing with mild effacement of the ventral subarachnoid space and slight flattening of the anterior aspect of the spinal cord. Left neur al foramen is patent. C5-6 level: There is loss of intervertebral disc height with mild endplate degenerative changes. Disc osteophyte complex is present with prominent posterior osteophyte formation noted. This narrows the ventral subarachnoid space with slight flattening of the anterior aspect of the spinal cord. Post erior osteophyte formation is greater on the right at this level. Mild left and cgxk-[id number]-svqftrnn right-sided neural foraminal narrowing is present. C6-7 level: Minimal disc osteophyte complex is present with trace anterolisthesis of C6 on C7 as desc ribed above. However, there is no significant central canal or neural foraminal narrowing at this level. Mild facet degenerative changes are noted. C7-T1 level: No disc bulge disc herniation is identified, and the central spinal canal and neural for debbie are patent. Paravertebral soft tissues have a normal appearance. IMPRESSION: 1. No findings on this examination to suggest a cerebral spinal fluid leak. 2. Degenerative changes in the cervical spine greatest at the C5-6 and C6-7 levels.
--- NOTE | 2019-08-16 10:29 | RAD ---
PROCEDURE: XR Myelogram 2 or More Regions PROVIDED CLINICAL HISTORY: Chronic subdural hematomas. COMPARISON: None TECHNIQUE: The procedure including the risks and complications were explained to the patient, and informed conse nt was obtained. The patient was placed on the fluoroscopy table in the prone position. An area was marked over the L2-3 level and then meticulously prepped and draped in usual sterile fashion. The ski n and subcutaneous tissues were infiltrated with buffered 1% lidocaine for local anesthesia at the intended puncture site. A 22-gauge spinal needle was advanced into the thecal sac. The inner stylette was removed with a return of clear cerebral spinal fluid. Approximately 8 mL of Isovue M300 contrast was instilled into the thecal sac. Inner stylette was replaced, and the needle was removed. Hemostasis was achieved with direct pressure, and a dry sterile dressing was placed. The patient tolerated the procedure well and without immediate complication. The patient was placed in Trendelenburg position to allow contrast to flow to the level of the cervic al spine. Patient was then transported to CT for further imaging of the cervical, thoracic, and lumbar spine. After CT was performed, the patient was transported to radiology nurses holding [facility] further monitoring prior to discharge. Fluoroscopy: Time-2.2 minutes Dose 258 microGy meter squared FINDINGS: Vertebral body heights and intervertebral disc spaces are within normal limits. No fracture or sublux ation is seen involving lumbar spine. Phleboliths overlie the pelvis. A complete myelogram was performed with puncture at the L2-3 level. IMPRESSION: Technically successful complete myelogram with puncture at the L2-[address] scans of the cervical, thoracic, and lumbar spine for further details.
== END 2019-08-16 10:10 | disposition home or self-care (01) ==
LOC: RAD 07:10
PROVIDERS: ATTEND Neurological Surgery
PROC: B00B1ZZ Plain Radiography of Spinal Cord using Low Osmolar Contrast (ICD-10-PCS; principal; 2019-08-16)
DX: I62.03 Nontraumatic chronic subdural hemorrhage (principal); M47.812 Spondylosis without myelopathy or radiculopathy, cervical region; M47.816 Spondylosis without myelopathy or radiculopathy, lumbar region; M48.02 Spinal stenosis, cervical region; Q61.02 Congenital multiple renal cysts; I10 Essential (primary) hypertension; N40.0 Benign prostatic hyperplasia without lower urinary tract symptoms; Z79.899 Other long term (current) drug therapy; Z88.0 Allergy status to penicillin; Z88.2 Allergy status to sulfonamides; Z98.890 Other specified postprocedural states
CPT/HCPCS: 62305; 72126; 72129; 72132

== ENCOUNTER 2021-10-12 09:31 | Outpatient (CLI) | payer MEDICARE, BC ==
[2021-10-12 10:52] LABS: #Basophils 0.1 10x3/uL (0.0-0.2); #Eosinphils 0.1 10x3/uL (0.0-0.5); #Monocytes 0.6 10x3/uL (0.0-1.1); #Neutrophils 3.4 10x3/uL (1.5-8.4); %Basophils 1.7 % (0.0-2.0); %Eosinophils 1.3 % (0.0-6.0); %Lymphocytes 21.9 % (18.0-47.0); %Neutrophils 62.9 % (40.0-75.0); Hemoglobin 13.6 g/dL (13.5-17.5); Mean Corpuscular HGB CONC 34.3 g/dL (32.0-36.0); Mean Corpuscular Hemoglobin 31.5 pg (27.0-33.0); Mean Corpuscular Volume 91.7 fl (81.2-95.1); Mean Platelet Volume 9.4 fl (7.4-10.4); Platelet Count 262 10x3/uL (150-450); RBC Distribution Width 12.9 % (11.5-14.5); Red Blood Cell (RBC) Count 4.32 10x6/uL (4.32-5.72); White Blood Cell (WBC) Count 5.3 10x3/uL (3.5-10.5)
[2021-10-12 10:55] LABS: Anion Gap 15 mmol/L (10-20); BUN (Urea Nitrogen) 17 mg/dL (8.4-25.7); Calc. Creatinine Clearance 0 mL/min (70-130); Calcium 9.4 mg/dL (7.8-10.44); Carbon Dioxide 26 mmol/L (23-31); Chloride 97 mmol/L (98-107); Glucose 90 mg/dL (83-110); Potassium 4.6 mmol/L (3.5-5.1); Sodium 133 mmol/L (136-145)
[2021-10-12 20:29] LABS: SARS-CoV-2 PCR by NAA Not Detected (NotDetected)
== END 2021-10-12 09:32 | disposition home or self-care (01) ==
LOC: LABBT 09:31
PROVIDERS: ATTEND Specialist
DX: Z01.818 Encounter for other preprocedural examination (principal); K40.90 Unilateral inguinal hernia, without obstruction or gangrene, not specified as recurrent; Z20.822 Contact with and (suspected) exposure to COVID-19
CPT/HCPCS: 71046; 80048; 85025; 93005; U0003; U0005; 93010

== ENCOUNTER 2021-10-15 06:01 | Day surgery (SDC) | payer MEDICARE, BC ==
[2021-10-13 10:43] VITALS: BMI 21.2
[2021-10-15] MEDS ORDERED: Acetaminophen 500 MG TAB ONE (06:55)
[2021-10-15] MEDS ORDERED: Ketorolac Tromethamine 30 MG/ML VIAL ONE (06:55)
[2021-10-15] MEDS ORDERED: Bupivacaine 0.25% 10 ML VIAL ONE (08:36)
[2021-10-15] MEDS ORDERED: Lidocaine 1% w/Epinephrine 1:100K 20 ML VIAL ONE (08:36)
[2021-10-15] MEDS ORDERED: Ketamine 50 MG/ML (10ML VIAL) ONE (08:41)
[2021-10-15] MEDS ORDERED: Fentanyl 250 MCG/5 ML VIAL ONE (08:41)
[2021-10-15] MEDS ORDERED: fentaNYL Citrate/PF 100 MCG/2 ML SYRINGE ONE (08:42)
[2021-10-15] MEDS ORDERED: Levofloxacin 500 mg/D5W 100 ml Premix Bag ONE (08:50)
[2021-10-15] MEDS ORDERED: Midazolam HCl 2 mg/2 ml Vial ONE (08:53)
[2021-10-15] MEDS ORDERED: Lidocaine 1% PF 5 ML VIAL ONE (08:59)
[2021-10-15] MEDS ORDERED: ePHEDrine 50 MG/ML VIAL ONE (08:59)
[2021-10-15] MEDS ORDERED: PHENYLEPHRINE-NS 100 MCG/ML 10 ML SYRINGE ONE (08:59)
[2021-10-15] MEDS ORDERED: Glycopyrrolate 0.2 MG/ML 5 ML SYRINGE ONE (08:59)
[2021-10-15] MEDS ORDERED: Dexamethasone 20 MG/5 ML VIAL ONE (08:59)
[2021-10-15] MEDS ORDERED: Ondansetron PF 4 MG/2 ML Vial ONE (08:59)
[2021-10-15] MEDS ORDERED: PROPOFOL 200 MG/20 ML VIAL ONE (08:59)
[2021-10-15] MEDS ORDERED: Rocuronium Bromide 10 MG/ML (10ML VIAL) ONE (08:59)
[2021-10-15] MEDS ORDERED: Tamsulosin HCl 0.4 MG CAP ONE (12:32)
== END 2021-10-15 12:58 | disposition home or self-care (01) ==
LOC: SDC 06:01
PROVIDERS: ATTEND Specialist
PROC: 0YU60JZ Supplement Left Inguinal Region with Synthetic Substitute, Open Approach (ICD-10-PCS; principal; 2021-10-15)
DX: K40.90 Unilateral inguinal hernia, without obstruction or gangrene, not specified as recurrent (principal); I10 Essential (primary) hypertension; Z79.899 Other long term (current) drug therapy; Z88.0 Allergy status to penicillin; Z88.2 Allergy status to sulfonamides
CPT/HCPCS: 49505; C1781; J1100; J1885; J1956; J2250; J2405; J2704; J3010; J3490; S0020